=== PATIENT | female | born 1945 | race Caucasian/White ===

== ENCOUNTER 2017-06-23 05:32 | Inpatient (IN) | payer MEDICARE, OTHER ==
[2017-06-22 13:23] LABS: BASOPHILS # (AUTO) 0.1 X10'3 (0-0.2); BASOPHILS % (AUTO) 1.9 % (0-1); EOSINOPHILS # (AUTO) 0.2 X10'3 (0-0.9); EOSINOPHILS % (AUTO) 4.4 % (0-6); LYMPHOCYTES # (AUTO) 1.5 X10'3 (1.1-4.8); LYMPHOCYTES % (AUTO) 29.1 % (21-51); MEAN CORPUSCULAR HEMOGLOBIN 29.8 PG (27.0-31.0); MEAN CORPUSCULAR HGB CONC 34.1 % (33.0-36.5); MEAN CORPUSCULAR VOLUME 87.3 FL (78-98); MEAN PLATELET VOLUME 7.6 FL (7.4-10.4); MONOCYTES # (AUTO) 0.5 X10'3 (0-0.9); MONOCYTES % (AUTO) 9.5 % (2-12); NEUTROPHILS # (AUTO) 2.8 X10'3 (1.8-7.7); NEUTROPHILS % (AUTO) 55.1 % (42-75); PRE OP HEMATOCRIT 41.7 % (35.0-45.0); PRE OP HEMOGLOBIN 14.2 g/dL (12.0-16.0); PRE OP PLATELET COUNT 277 X10'3 (140-440); RED BLOOD COUNT 4.78 X10'6 (4.20-5.60); RED CELL DISTRIBUTION WIDTH 13.3 % (11.5-14.5)
[2017-06-22 13:32] LABS: PRE OP PROTIME 10.2 SECONDS (9.0-12.0)
[2017-06-22 13:35] LABS: COLOR,URINE Yellow (Yellow); GLUCOSE, URINE Negative (Neg); KETONES,URINE Negative (Neg); LEUKOCYTE ESTERASE ,URINE Small (Neg); NITRITES, URINE Negative (Neg); OCCULT BLOOD,URINE Trace-Intact (Neg); PROTEIN,URINE Negative (Neg); UROBILINOGEN,URINE 0.2 E.U/dL (0.2-1.0)
[2017-06-22 13:38] LABS: ALBUMIN 3.5 G/DL (3.4-5.0); ALBUMIN/GLOBULIN RATIO 0.8 (1.1-1.5); ALKALINE PHOSPHATASE 106 IU/L (46-116); BLOOD UREA NITROGEN 18 MG/DL (7-18); BUN/CREATININE RATIO 25.7 (6.6-38.0); CALCIUM 8.9 MG/DL (8.5-10.1); CHLORIDE 102 MMOL/L (99-107); PRE OP ALT 23 U/L (30-65); PRE OP ANION GAP 8 (8-16); PRE OP AST 19 U/L (10-37); PRE OP BILIRUB, TOTAL 0.2 MG/DL (0.0-1.0); PRE OP GLUCOSE 85 MG/DL (70-104); PRE OP SODIUM 140 MMOL/L (135-145); TOTAL CARBON DIOXIDE 30.2 MMOL/L (24-32); eGFR 83 ML/MIN
[2017-06-22 13:42] LABS: PRE OP POTASSIUM 3.5 MMOL/L (3.4-5.1)
[2017-06-22 13:47] LABS: CLARITY,URINE Slightly Cloudy (Clear)
[2017-06-22 13:49] LABS: UA COLLECTION TYPE CLN CATCH MIDSTREAM
[2017-06-22 13:58] LABS: HEMOGLOBIN A1C 5.8 % (4.5-6.2)
[2017-06-22 14:01] LABS: RBC,URINE 0-2 /HPF (0-2); WBC,URINE 0-4 /HPF (0-4)
[2017-06-22 14:02] LABS: BACTERIA,URINE FEW /HPF (Neg); SQUAMOUS EPITHELIAL CELL,UR MODERATE /LPF (FEW)
[2017-06-22 15:40] LABS: ABG BASE EXCESS 3.5 mmol/L (-2.0-3.0); ABG HCO3 27.1 mmol/L (22.0-26.0); ABG OXYGEN SATURATION 95.9 % (95-98); ABG PCO2 (T) 37.6 mmHg (32.0-45.0); ABG PH (T) 7.475 (7.350-7.450); ALLEN'S TEST Positive; FCOHb 0.8 % (0.5-1.5); FO2Hb 95.1 % (94-100); TOTAL HEMOGLOBIN 14.3 G/dl (12.0-16.0)
[2017-06-23] VITALS (21 sets, daily range): BP systolic 92–141; BP diastolic 53–84
[~2017-06-23] VITALS: Ht 167.6 cm; Wt 98.3 kg
[~2017-06-23 05:32] MED LIST: ASPI-1265 PO; CARV-50 PO; DOCUMENT DATE & TIME OF BETA-BLOCKER PO ONE; LOSA1TAB36 PO; P-EP-21 PO; ceFAZolin 2gm in dextrose, iso 100 ML IV ONE; famotidine 20mg tablet PO ONE; ringers solution, lacted 1,000 ML IV SCH; vancomycin inj 1,500 MG in normal saline 300ml IV soln IV ONE
[2017-06-23] MEDS ORDERED: LIDOcaine 1% (10mg/ml) 2ml vial ONE ×2 (05:49→06:04)
[2017-06-23] MEDS: mupirocin 2% ointment 22GM TP SCH ×3 (06:23→20:00)
[2017-06-23] MEDS ORDERED: fentaNYL /PF 50mcg/ml 5ml ampule ONE (07:07)
[2017-06-23] MEDS ORDERED: midazolam 2 mg/2 ml injection ONE (07:07)
[2017-06-23] MEDS ORDERED: sevoflurane 250ml liquid IH ONE (07:20)
[2017-06-23] MEDS ORDERED: BUPIVAcaine 0.5% inj/PF 30 ml vial ONE (08:10)
[2017-06-23] MEDS ORDERED: ePHEDrine 50MG/ML INJ. ONE (09:22)
[2017-06-23] MEDS ORDERED: rocuronium 10mg/ml inj IV ONE (09:22)
[2017-06-23] MEDS ORDERED: propofol inj 0 ML IV ONE (09:22)
[2017-06-23] MEDS ORDERED: etomidate 2mg/ml inj. ONE (09:22)
[2017-06-23] MEDS ORDERED: glycopyrrolate 0.2mg/ml inj ONE (09:25)
[2017-06-23] MEDS ORDERED: neostigmine methylsulfate 1 MG/ML 10ml vial ONE (09:25)
[2017-06-23] MEDS ORDERED: loratadine/pseudoephedrine TAB.SR.12Hour PO PRN (09:40)
[2017-06-23] MEDS ORDERED: morphine/NS 5 mg/ml CADD 50 ML IV SCH (09:41)
[2017-06-23] MEDS ORDERED: CADD PCA waste documentation MC PRN (09:45)
[2017-06-23] MEDS ORDERED: HYDROcodone/acetaminophen 10/325mg tab PO PRN ×2 (09:45)
[2017-06-23] MEDS ORDERED: ondansetron/PF 4mg/2ml inj IV PRN ×2 (09:45→09:50)
[2017-06-23] MEDS ORDERED: albuterol 2.5 MG/3 ML nebule NEB PRN (09:45)
[2017-06-23] MEDS ORDERED: metoclopramide 5 mg/ml inj IV PRN (09:45)
[2017-06-23] MEDS ORDERED: magnesium hydroxide 30ml (MOM) UD suspension PO PRN (09:45)
[2017-06-23] MEDS ORDERED: naloxone 0.4 mg/ml inj IV PRN (09:45)
[2017-06-23] MEDS ORDERED: ringers solution, lacted 1,000 ML IV ONE (09:50)
[2017-06-23] MEDS ORDERED: meperidine/PF 50mg/ml syringe IV ONE (09:50)
[2017-06-23] MEDS ORDERED: labetalol 20mg/4ml (5mg/ml) syringe IV PRN (09:50)
[2017-06-23] MEDS ORDERED: magnesium 4gm in 100ml NS 100 ML IV PRN (09:50)
[2017-06-23] MEDS ORDERED: potassium Cl 20mEq/100mL bag 100 ML IV PRN ×3 (09:50)
[2017-06-23] MEDS ORDERED: hydrALAZINE 20mg/ml inj. IV PRN (09:50)
[2017-06-23] MEDS ORDERED: magnesium 2GM in 50ml NS 50 ML IV PRN (09:50)
[2017-06-23] MEDS ORDERED: meperidine/PF 50mg/ml syringe IV PRN ×2 (09:50)
[2017-06-23] MEDS ORDERED: meperidine/PF 25mg/ml syringe ONE (09:56)
[2017-06-23] MEDS ORDERED: ketorolac tromethamine 15mg/ml inj. IV ONE (10:05)
[2017-06-23] MEDS: acetaminophen 1,000mg/100ml IV 100 ML IV SCH ×2 (10:38→14:06)
[2017-06-23] MEDS: HYDROmorphone/NS 1 mg/ml CADD 50 ML IV SCH ×7 (11:00→23:00)
[2017-06-23] MEDS: normal saline 1000ml 1,000 ML IV SCH (11:30)
[2017-06-23 13:48] LABS: BASOPHILS % (AUTO) 0.4 % (0-1); EOSINOPHILS # (AUTO) 0.2 X10'3 (0-0.9); EOSINOPHILS % (AUTO) 2.2 % (0-6); HEMATOCRIT 35.2 % (35.0-45.0); LYMPHOCYTES # (AUTO) 1.1 X10'3 (1.1-4.8); LYMPHOCYTES % (AUTO) 11.2 % (21-51); MEAN CORPUSCULAR HEMOGLOBIN 29.6 PG (27.0-31.0); MEAN CORPUSCULAR VOLUME 86.9 FL (78-98); MEAN PLATELET VOLUME 7.4 FL (7.4-10.4); MONOCYTES # (AUTO) 0.6 X10'3 (0-0.9); MONOCYTES % (AUTO) 5.7 % (2-12); NEUTROPHILS # (AUTO) 8.1 X10'3 (1.8-7.7); NEUTROPHILS % (AUTO) 80.5 % (42-75); PLATELET COUNT 228 X10'3 (140-440); RED BLOOD COUNT 4.05 X10'6 (4.20-5.60); RED CELL DISTRIBUTION WIDTH 13.6 % (11.5-14.5); WHITE BLOOD COUNT 10.1 X10'3 (4.5-11.0)
[2017-06-23 13:58] LABS: ANION GAP 5 (8-16); BLOOD UREA NITROGEN 18 MG/DL (7-18); BUN/CREATININE RATIO 25.7 (6.6-38.0); CALCIUM 8.2 MG/DL (8.5-10.1); CHLORIDE 105 MMOL/L (99-107); GLUCOSE 119 MG/DL (70-104); POTASSIUM 3.6 MMOL/L (3.5-5.1); SODIUM 141 MMOL/L (135-145); TOTAL CARBON DIOXIDE 30.7 MMOL/L (24-32); eGFR 83 ML/MIN
[2017-06-23] MEDS: ketorolac tromethamine 15mg/ml inj. IV SCH ×2 (14:05→20:18)
[2017-06-23] MEDS ORDERED: carVEDilol 12.5mg tablet PO SCH (20:00)
[2017-06-23] MEDS: docusate sod 100mg capsule PO SCH (20:23)
[2017-06-23] MEDS: ceFAZolin inj. 1,000 MG in dextrose 5%-water 50ml 50 ML IV SCH (20:37)
[2017-06-23] MEDS ORDERED: carvedilol 6.25mg tablet PO ONE (20:50)
[2017-06-24] VITALS (16 sets, daily range): BP systolic 85–112; BP diastolic 54–71
[2017-06-24] MEDS: HYDROmorphone/NS 1 mg/ml CADD 50 ML IV SCH ×11 (01:00→23:00)
[2017-06-24] MEDS: ketorolac tromethamine 15mg/ml inj. IV SCH ×2 (03:22→09:15)
[2017-06-24 03:53] LABS: BASOPHILS % (AUTO) 0.5 % (0-1); EOSINOPHILS # (AUTO) 0.2 X10'3 (0-0.9); EOSINOPHILS % (AUTO) 2.8 % (0-6); HEMATOCRIT 35.2 % (35.0-45.0); HEMOGLOBIN 11.8 g/dl (12.0-16.0); LYMPHOCYTES # (AUTO) 0.9 X10'3 (1.1-4.8); LYMPHOCYTES % (AUTO) 11.1 % (21-51); MEAN CORPUSCULAR HEMOGLOBIN 29.4 PG (27.0-31.0); MEAN CORPUSCULAR HGB CONC 33.5 % (33.0-36.5); MEAN CORPUSCULAR VOLUME 87.9 FL (78-98); MEAN PLATELET VOLUME 7.8 FL (7.4-10.4); MONOCYTES # (AUTO) 0.5 X10'3 (0-0.9); MONOCYTES % (AUTO) 6.4 % (2-12); NEUTROPHILS # (AUTO) 6.5 X10'3 (1.8-7.7); NEUTROPHILS % (AUTO) 79.2 % (42-75); PLATELET COUNT 220 X10'3 (140-440); RED BLOOD COUNT 4.01 X10'6 (4.20-5.60); RED CELL DISTRIBUTION WIDTH 13.8 % (11.5-14.5); WHITE BLOOD COUNT 8.2 X10'3 (4.5-11.0)
[2017-06-24 04:03] LABS: ALBUMIN 2.8 G/DL (3.4-5.0); ANION GAP 5 (8-16); BLOOD UREA NITROGEN 16 MG/DL (7-18); BUN/CREATININE RATIO 21.3 (6.6-38.0); CALCIUM 8.2 MG/DL (8.5-10.1); CHLORIDE 103 MMOL/L (99-107); CREATININE 0.75 MG/DL (0.40-0.90); GLUCOSE 119 MG/DL (70-104); POTASSIUM 4.2 MMOL/L (3.5-5.1); SODIUM 138 MMOL/L (135-145); TOTAL CARBON DIOXIDE 29.6 MMOL/L (24-32); eGFR 76 ML/MIN
[2017-06-24] MEDS ORDERED: non-formulary drug (Losartan/Hydrochlorothiazide (Losartan-Hctz 50-12.5 Mg Tab) 1 TAB) PO SCH (08:00)
[2017-06-24] MEDS: carvedilol 6.25mg tablet PO SCH ×2 (09:15→20:00)
[2017-06-24] MEDS: docusate sod 100mg capsule PO SCH ×2 (09:15→20:18)
[2017-06-24] MEDS: aspirin 81mg tab.chew PO SCH (09:15)
[2017-06-24] MEDS: mupirocin 2% ointment 22GM TP SCH ×2 (09:26→20:00)
[2017-06-24] MEDS: ceFAZolin inj. 1,000 MG in dextrose 5%-water 50ml 50 ML IV SCH (10:23)
[2017-06-24] MEDS ORDERED: acetaminophen 325mg tablet PO PRN (11:10)
[2017-06-24] MEDS: losartan 50mg tablet PO SCH (11:10)
[2017-06-24] MEDS ORDERED: furosemide 40mg/4ml inj IV ONE (11:10)
[2017-06-24] MEDS ORDERED: diphenhydrAMINE 25mg capsule PO ONE (11:10)
[2017-06-24] MEDS: HYDROchlorothiazide 12.5mg capsule PO SCH (11:10)
[2017-06-24] MEDS ORDERED: potassium Cl 20 mEq SR tablet PO PRN (11:20)
[2017-06-24] MEDS ORDERED: magnesium 4gm in 100ml NS 100 ML IV PRN (11:20)
[2017-06-24] MEDS ORDERED: magnesium Cl slow-release 64mg tablet PO PRN (11:20)
[2017-06-24] MEDS ORDERED: potassium Cl 40MEQ/NS 500ml 500 ML IV PRN ×2 (11:20)
[2017-06-24] MEDS ORDERED: magnesium 2GM in 50ml NS 50 ML IV PRN (11:20)
[2017-06-24] MEDS: magnesium Cl slow-release 64mg tablet PO SCH (20:00)
[2017-06-24] MEDS: potassium Cl 20 mEq SR tablet PO SCH (20:00)
[2017-06-25] MEDS: HYDROmorphone/NS 1 mg/ml CADD 50 ML IV SCH ×5 (01:00→09:00)
[2017-06-25 03:00] VITALS: BP 94/56
[2017-06-25 06:57] LABS: BASOPHILS % (AUTO) 0.2 % (0-1); EOSINOPHILS # (AUTO) 0.5 X10'3 (0-0.9); EOSINOPHILS % (AUTO) 5.5 % (0-6); LYMPHOCYTES # (AUTO) 1.2 X10'3 (1.1-4.8); LYMPHOCYTES % (AUTO) 12.4 % (21-51); MEAN CORPUSCULAR HEMOGLOBIN 29.8 PG (27.0-31.0); MEAN CORPUSCULAR HGB CONC 34.3 % (33.0-36.5); MEAN CORPUSCULAR VOLUME 86.8 FL (78-98); MEAN PLATELET VOLUME 7.6 FL (7.4-10.4); MONOCYTES # (AUTO) 0.9 X10'3 (0-0.9); NEUTROPHILS # (AUTO) 6.9 X10'3 (1.8-7.7); NEUTROPHILS % (AUTO) 72.9 % (42-75); PLATELET COUNT 221 X10'3 (140-440); RED BLOOD COUNT 4.03 X10'6 (4.20-5.60); RED CELL DISTRIBUTION WIDTH 13.6 % (11.5-14.5); WHITE BLOOD COUNT 9.5 X10'3 (4.5-11.0)
[2017-06-25 07:17] VITALS: BP 89/52
[2017-06-25 07:23] LABS: ALBUMIN 2.7 G/DL (3.4-5.0); ANION GAP 10 (8-16); BLOOD UREA NITROGEN 16 MG/DL (7-18); BUN/CREATININE RATIO 22.2 (6.6-38.0); CALCIUM 8.1 MG/DL (8.5-10.1); CHLORIDE 99 MMOL/L (99-107); CREATININE 0.72 MG/DL (0.40-0.90); GLUCOSE 109 MG/DL (70-104); MAGNESIUM 2.1 MG/DL (1.5-2.4); POTASSIUM 3.4 MMOL/L (3.5-5.1); SODIUM 136 MMOL/L (135-145); TOTAL CARBON DIOXIDE 26.6 MMOL/L (24-32); eGFR 80 ML/MIN
[2017-06-25] MEDS: magnesium Cl slow-release 64mg tablet PO SCH ×2 (08:00→20:00)
[2017-06-25] MEDS: losartan 50mg tablet PO SCH (08:00)
[2017-06-25] MEDS: carvedilol 6.25mg tablet PO SCH ×2 (08:00→21:40)
[2017-06-25] MEDS: K and/or MAG REPLACEMENT MC SCH (08:00)
[2017-06-25] MEDS: HYDROchlorothiazide 12.5mg capsule PO SCH (08:00)
[2017-06-25] MEDS: docusate sod 100mg capsule PO SCH ×2 (08:51→21:40)
[2017-06-25] MEDS: potassium Cl 20 mEq SR tablet PO SCH ×2 (08:51→21:40)
[2017-06-25] MEDS: aspirin 81mg tab.chew PO SCH (08:51)
[2017-06-25] MEDS: normal saline 1000ml 1,000 ML IV SCH (09:41)
[2017-06-25] MEDS: mupirocin 2% ointment 22GM TP SCH ×2 (09:50→20:00)
[2017-06-25] MEDS ORDERED: HYDROcodone/acetaminophen 5mg/325mg tablet PO PRN (10:45)
[2017-06-25] MEDS: ibuprofen tablet 400 MG TABLET PO SCH ×2 (12:11→16:28)
[2017-06-25] MEDS: potassium Cl 20 mEq SR tablet PO PRN ×2 (12:39→16:27)
[2017-06-25] MEDS: Protein Shake (high protein) 240ml (8oz) cup PO SCH ×2 (13:00→18:00)
[2017-06-25 15:00] VITALS: BP 89/59
[2017-06-25 19:00] VITALS: BP 99/64
[2017-06-25 23:00] VITALS: BP 103/67
[2017-06-26 03:00] VITALS: BP 96/66
[2017-06-26 05:26] LABS: BASOPHILS % (AUTO) 0.2 % (0-1); EOSINOPHILS # (AUTO) 0.7 X10'3 (0-0.9); EOSINOPHILS % (AUTO) 10.4 % (0-6); HEMATOCRIT 32.2 % (35.0-45.0); HEMOGLOBIN 11.1 g/dl (12.0-16.0); LYMPHOCYTES # (AUTO) 1.3 X10'3 (1.1-4.8); MEAN CORPUSCULAR HGB CONC 34.5 % (33.0-36.5); MEAN PLATELET VOLUME 7.8 FL (7.4-10.4); MONOCYTES # (AUTO) 0.6 X10'3 (0-0.9); MONOCYTES % (AUTO) 9.9 % (2-12); NEUTROPHILS # (AUTO) 3.9 X10'3 (1.8-7.7); NEUTROPHILS % (AUTO) 59.5 % (42-75); PLATELET COUNT 204 X10'3 (140-440); RED CELL DISTRIBUTION WIDTH 13.4 % (11.5-14.5); WHITE BLOOD COUNT 6.6 X10'3 (4.5-11.0)
[2017-06-26 05:35] LABS: ALBUMIN 2.5 G/DL (3.4-5.0); ANION GAP 7 (8-16); BLOOD UREA NITROGEN 19 MG/DL (7-18); BUN/CREATININE RATIO 25.3 (6.6-38.0); CALCIUM 8.6 MG/DL (8.5-10.1); CHLORIDE 104 MMOL/L (99-107); CREATININE 0.75 MG/DL (0.40-0.90); GLUCOSE 100 MG/DL (70-104); MAGNESIUM 2.4 MG/DL (1.5-2.4); SODIUM 139 MMOL/L (135-145); TOTAL CARBON DIOXIDE 28.3 MMOL/L (24-32); eGFR 76 ML/MIN
[2017-06-26 06:00] VITALS: BP 108/78
[2017-06-26] MEDS: magnesium Cl slow-release 64mg tablet PO SCH (06:28)
[2017-06-26] MEDS: HYDROchlorothiazide 12.5mg capsule PO SCH (08:00)
[2017-06-26] MEDS: losartan 50mg tablet PO SCH (08:00)
[2017-06-26] MEDS: Protein Shake (high protein) 240ml (8oz) cup PO SCH (08:00)
[2017-06-26] MEDS: mupirocin 2% ointment 22GM TP SCH (08:00)
[2017-06-26] MEDS ORDERED: COL100C PO (08:01)
[2017-06-26] MEDS: docusate sod 100mg capsule PO SCH (08:30)
[2017-06-26] MEDS: aspirin 81mg tab.chew PO SCH (08:30)
[2017-06-26] MEDS: potassium Cl 20 mEq SR tablet PO SCH (08:30)
[2017-06-26] MEDS: carvedilol 6.25mg tablet PO SCH (08:30)
[2017-06-26] MEDS: ibuprofen tablet 400 MG TABLET PO SCH (08:31)
[2017-06-26] MEDS: K and/or MAG REPLACEMENT MC SCH (09:15)
== END 2017-06-26 10:10 | disposition home or self-care (01) | DRG 261 ==
LOC: PAS IN 05:32 → EDSTATUS 07:30 → ICU 2S 11:15 → PCU 3S 06-24 16:49
PROVIDERS: ADMIT Thoracic Surgery (Cardiothoracic Vascular Surgery); ATTEND Thoracic Surgery (Cardiothoracic Vascular Surgery)
PROC: 0JC60ZZ Extirpation of Matter from Chest Subcutaneous Tissue and Fascia, Open Approach (ICD-10-PCS; 2017-06-23)
PROC: 02HN0JZ Insertion of Pacemaker Lead into Pericardium, Open Approach (ICD-10-PCS; principal; 2017-06-23 07:20)
DX: I49.5 Sick sinus syndrome (principal); D62 Acute posthemorrhagic anemia; I42.8 Other cardiomyopathies; I11.0 Hypertensive heart disease with heart failure; I50.22 Chronic systolic (congestive) heart failure; J32.8 Other chronic sinusitis; E11.9 Type 2 diabetes mellitus without complications; E78.5 Hyperlipidemia, unspecified; I10 Essential (primary) hypertension; K21.9 Gastro-esophageal reflux disease without esophagitis; F32.9 Major depressive disorder, single episode, unspecified; G89.29 Other chronic pain; M54.9 Dorsalgia, unspecified; F32.89 Other specified depressive episodes; Z82.5 Family history of asthma and other chronic lower respiratory diseases; Z87.891 Personal history of nicotine dependence; Z95.0 Presence of cardiac pacemaker; Z88.5 Allergy status to narcotic agent; Z88.6 Allergy status to analgesic agent; Z88.2 Allergy status to sulfonamides; Z82.49 Family history of ischemic heart disease and other diseases of the circulatory system
CPT/HCPCS: 36415; 36600; 71045; 71046; 80048; 80053; 81001; 82803; 83036; 83735; 85018; 85025; 85610; 85730; 86885; 86900; 86901; 86920; 87070; 87088; 93005; 94010; 94668; 97116; 97162; 97530; A4565; A6212; A6449; A7000; A7048; C1758; C1900; J0131; J0690; J1170; J1885; J1940; J2175; J2250; J2405; J2704; J2710; J3010; J3370; J3480; J3490; J7030; J7060; J7120; Q0163